=== PATIENT | male | born 1975 | race Hispanic/Latino ===

== ENCOUNTER 2020-11-03 08:26 | Emergency (ER) | payer OTHER, SELFPAY ==
[2020-11-03] MEDS ORDERED: Boostrix 0.5 ML (Tdap) VIAL ONE (08:58)
[2020-11-03] MEDS ORDERED: Acetaminophen 325 MG TAB ONE (08:58)
== END 2020-11-03 10:05 | disposition home or self-care (01) ==
LOC: ERS 08:26
DX: S63.91XA Sprain of unspecified part of right wrist and hand, initial encounter (principal); S20.219A Contusion of unspecified front wall of thorax, initial encounter; S60.412A Abrasion of right middle finger, initial encounter; V49.40XA Driver injured in collision with unspecified motor vehicles in traffic accident, initial encounter; Z23 Encounter for immunization
CPT/HCPCS: 71045; 90471; 90715; 93005; G0390